=== PATIENT | female | born 1995 | race Two or more races ===

== ENCOUNTER 2024-03-12 08:12 | Inpatient (IN) | payer OTHER ==
[~2024-03-12] VITALS: Ht 167.6 cm; Wt 168.6 kg
[2024-03-12] VITALS (9 sets, daily range): BP systolic 117–161; BP diastolic 56–85
[2024-03-12] MEDS ORDERED: PRENTAB9 PO (09:00)
[2024-03-12] MEDS ORDERED: LEVO75TA4 PO (09:00)
[2024-03-12] MEDS ORDERED: ECOT81TA5 PO (09:00)
[2024-03-12] MEDS ORDERED: LABE300T28 PO (09:00)
[2024-03-12] MEDS: LACTATED RINGER'S 1000 ML IV STA (09:12)
[2024-03-12] MEDS ORDERED: OXYTOCIN INJ 10UNITS/ML 1ML VIAL IM PRN (09:15)
[2024-03-12] MEDS ORDERED: LIDOCAINE 1% MDV 20ML VIAL INFIL PRN (09:15)
[2024-03-12] MEDS ORDERED: CARBOPROST TROMETHAMINE 250 MCG/ML AMP IM PRN (09:15)
[2024-03-12] MEDS ORDERED: TRANEXAMIC ACID INJection 1,000 MG in NS 100 ML IV PRN (09:15)
[2024-03-12] MEDS ORDERED: OXYTOCIN DRIP 30 UNITS in IV 1 EA IV PRN (09:15)
[2024-03-12 09:51] LABS: HEMATOCRIT 33.1 % (36.0-47.0); HEMOGLOBIN 10.9 g/dl (12.0-15.5); MEAN CORPUSCULAR HEMOGLOBIN 29.6 pg (27.0-33.0); MEAN CORPUSCULAR HGB CONC 32.9 g/dl (32.0-36.5); MEAN CORPUSCULAR VOLUME 89.9 fl (80.0-96.0); PLATELET COUNT, AUTOMATED 210 10^3/uL (150-450); RED BLOOD COUNT 3.68 10^6/uL (4.00-5.40); WHITE BLOOD COUNT 8.7 10^3/uL (4.0-10.0)
[2024-03-12 10:19] LABS: ALT/SGPT 15 U/L (7.0-40); AST/SGOT 14 U/L (<34); BILIRUBIN,TOTAL 0.3 MG/DL (0.3-1.2); CREATININE FOR GFR 0.54 MG/DL (0.55-1.30); GLOMERULAR FILTRATION RATE > 60.0 (>60); LDH LACTATE DEHYDROGENASE 190 U/L (120-246)
[2024-03-12 10:20] LABS: URIC ACID 5.8 MG/DL (3.1-7.8)
[2024-03-12] MEDS: LEVOTHYROXINE 75MCG TABLET (0.075MG) PO SCH (10:38)
[2024-03-12 11:00] LABS: HEPATITIS C VIRUS ABY INDEX < 0.02 INDEX (<0.8)
[2024-03-12 11:37] LABS: CREATININE,RANDOM URINE 62.9 MG/DL
[2024-03-12 11:42] LABS: TOTAL PROTEIN,RANDOM URINE < 6.0 MG/DL (0.0-14.0)
[2024-03-12] MEDS: LR 1,000 ML IV SCH (13:34)
[2024-03-12] MEDS: OXYTOCIN DRIP 30 UNITS in IV 1 EA IV SCH (13:34)
[2024-03-12] MEDS: LABETALOL 100MG TAB PO SCH (13:42)
[2024-03-13] VITALS (24 sets, daily range): BP systolic 120–166; BP diastolic 56–94; TEMP 97.4; O2SAT 96–99
[2024-03-13] MEDS: MORPHINE 10 MG/ML 1ML VIAL IV ONE (04:45)
[2024-03-13] MEDS: PROMETHAZINE 25MG/ML 1ML VIAL IV ONE (04:45)
[2024-03-13] MEDS ORDERED: ceFAZolin SOD 3 GM IV Place Holder IV ONE (08:00)
[2024-03-13] MEDS: AZITHROMYCIN INJ 500 MG, VIAL MATE ADAPTER 1 EACH in NS 250 ML IV ONE (08:21)
[2024-03-13] MEDS: BICITRA 30ML SOLN UDC PO ONE (08:28)
[2024-03-13] MEDS: ceFAZolin SOD 1 GM in D5W MINI-BAG PLUS 50 ML IV ONE (08:29)
[2024-03-13] MEDS: ceFAZolin SOD 2 GM in IV 1 EA IV ONE (08:29)
[2024-03-13] MEDS ORDERED: fentaNYL 100 MCG/2 ML INJECTION As Ordered ONE (11:44)
[2024-03-13] MEDS ORDERED: OXYTOCIN 30UNITS IN 0.9% NaCl 500ML IV BAG As Ordered ONE (11:44)
[2024-03-13] MEDS ORDERED: TRANEXAMIC ACID 100 MG/ML 10ML VIAL As Ordered ONE (11:44)
[2024-03-13] MEDS ORDERED: ONDANSETRON 4MG 2ML VIAL As Ordered ONE (11:44)
[2024-03-13] MEDS ORDERED: MORPHINE PRES-FREE INJ 10 MG/10 ML VIAL As Ordered ONE (11:44)
[2024-03-13] MEDS ORDERED: PHENYLephrine 500MCG 5ML (100MCG/ML) SYRINGE As Ordered ONE (11:44)
[2024-03-13 12:03] LABS: CORD GAS ABE A -1.4; CORD GAS ABE V -2.5; CORD GAS HCO3 A 25.2 MMOL/L; CORD GAS HCO3 V 22.1 MMOL/L; CORD GAS O2 SAT A 17.5 %; CORD GAS O2 SAT V 52.7 %; CORD GAS PCO2 A 49.8 mmHg; CORD GAS PCO2 V 37.7 mmHg; CORD GAS PH A 7.322 UNITS; CORD GAS PH V 7.386 UNITS; CORD GAS PO2 A 10.8 mmHg; CORD GAS PO2 V 21.1 mmHg; CORD GAS SBC A 21.4 MMOL/L; CORD GAS SBC V 21.4 MMOL/L; CORD GAS TCO2 A 26.7 MMOL/L; CORD GAS TCO2 V 23.3 MMOL/L
[2024-03-13] MEDS ORDERED: KETOROLAC 60MG 2ML VIAL As Ordered ONE (12:21)
[2024-03-13] MEDS ORDERED: MOM 30ML SUSPENSION UDC PO PRN (12:45)
[2024-03-13] MEDS ORDERED: RHO(D) IMMUNE GLOBULIN/MALTOSE 500MCG(2500IU)/2.2ML VIAL (WINRHO) IM SCH (12:45)
[2024-03-13] MEDS ORDERED: oxyCODONE 5MG TAB PO PRN ×3 (12:45→13:15)
[2024-03-13] MEDS ORDERED: SIMETHICONE 80MG CHEW TAB PO PRN (12:45)
[2024-03-13] MEDS ORDERED: ACETAMINOPHEN 500 MG TAB PO PRN (12:45)
[2024-03-13] MEDS ORDERED: ONDANSETRON 4MG 2ML VIAL IV PRN (13:15)
[2024-03-13] MEDS ORDERED: fentaNYL 100 MCG/2 ML INJECTION IV PRN (13:15)
[2024-03-13] MEDS ORDERED: **NOTE PATIENT COMMENT** MISC XX SCH (13:15)
[2024-03-13] MEDS ORDERED: diphenhydrAMINE 50MG/ML VIAL IV PRN (13:15)
[2024-03-13] MEDS: LR 1,000 ML IV SCH (13:15)
[2024-03-13] MEDS ORDERED: NALOXONE INJ 0.4MG/1ML VIAL IV PRN ×2 (13:15)
[2024-03-13] MEDS: CEPHALEXIN 500 MG CAP PO SCH (15:01)
[2024-03-13] MEDS: metroNIDAZOLE (FLAGYL) 500MG TABLET PO SCH (15:01)
[2024-03-13] MEDS: SLF 3 ML SYR IV SCH (15:36)
[2024-03-13] MEDS ORDERED: UNRESOLVED CLARIFICATION ENTRY XX SCH (16:00)
[2024-03-13] MEDS: METOCLOPRAMIDE INJ 10MG/2ML VIAL IV PRN (17:08)
[2024-03-13] MEDS: KETOROLAC 30 MG/ML 1ML VIAL IV SCH (18:36)
[2024-03-13] MEDS: DOCUSATE SODIUM 100MG CAPSULE PO SCH (21:00)
[2024-03-13] MEDS: ENOXAPARIN 80MG/0.8ML SYRINGE (J1650 PER 10MG) SQ SCH (22:14)
[2024-03-14] MEDS: metroNIDAZOLE 500 MG in IV 1 EA IV ONE (00:55)
[2024-03-14 02:00] VITALS: BP 120/60; O2SAT 97
[2024-03-14 06:00] VITALS: BP 111/59; O2SAT 99
[2024-03-14 06:34] LABS: HEMATOCRIT 27.2 % (36.0-47.0); MEAN CORPUSCULAR HEMOGLOBIN 29.9 pg (27.0-33.0); MEAN CORPUSCULAR HGB CONC 33.1 g/dl (32.0-36.5); MEAN CORPUSCULAR VOLUME 90.4 fl (80.0-96.0); PLATELET COUNT, AUTOMATED 190 10^3/uL (150-450); RED BLOOD COUNT 3.01 10^6/uL (4.00-5.40); WHITE BLOOD COUNT 15.9 10^3/uL (4.0-10.0)
[2024-03-14] MEDS ORDERED: OXYC1TAB23 PO (07:41)
[2024-03-14] MEDS ORDERED: IBUP80TA PO (07:41)
[2024-03-14] MEDS ORDERED: COLA100C5 PO (07:41)
[2024-03-14] MEDS: PRENATAL VITAMINS CHEWABLE TABLET PO SCH (09:00)
[2024-03-14 10:00] VITALS: BP 126/66; O2SAT 95
[2024-03-14] MEDS: IBUPROFEN 800 MG TAB PO SCH (13:16)
[2024-03-14 13:57] VITALS: BP 109/58; O2SAT 97
[2024-03-14 18:00] VITALS: BP 120/65; O2SAT 97
[2024-03-14] MEDS ORDERED: ENOXAPARIN 80MG/0.8ML SYRINGE (J1650 PER 10MG) SQ SCH (21:00)
[2024-03-14 22:00] VITALS: BP 124/59; O2SAT 97
[2024-03-15 02:00] VITALS: BP 114/55; O2SAT 97
[2024-03-15 06:00] VITALS: BP 133/75; O2SAT 98
[2024-03-15] MEDS ORDERED: MEASLES,MUMPS,RUBELLA VACCINE INJ (MMR-II) SC.IMMUN ONE (09:00)
[2024-03-15 09:17] VITALS: BP 121/65
[2024-03-15 10:27] VITALS: BP 138/63; O2SAT 99
== END 2024-03-15 13:00 | disposition home or self-care (01) | DRG 772 ==
LOC: M LDI 08:12 → M OBS 03-13 14:32
PROVIDERS: ADMIT Specialist; ATTEND Advanced Practice Midwife
PROC: 3E033VJ Introduction of Other Hormone into Peripheral Vein, Percutaneous Approach (ICD-10-PCS; 2024-03-12)
PROC: 10D00Z1 Extraction of Products of Conception, Low, Open Approach (ICD-10-PCS; principal; 2024-03-13 09:30)
DX: O10.92 Unspecified pre-existing hypertension complicating childbirth (principal); Z68.44 Body mass index [BMI] 60.0-69.9, adult; O72.1 Other immediate postpartum hemorrhage; O34.211 Maternal care for low transverse scar from previous cesarean delivery; Z37.0 Single live birth; Z3A.38 38 weeks gestation of pregnancy; E66.01 Morbid (severe) obesity due to excess calories; O99.214 Obesity complicating childbirth; E03.9 Hypothyroidism, unspecified; O99.284 Endocrine, nutritional and metabolic diseases complicating childbirth; Z79.899 Other long term (current) drug therapy; Z79.82 Long term (current) use of aspirin; O61.0 Failed medical induction of labor

== ENCOUNTER 2024-11-26 14:57 | Emergency (ER) | payer OTHER ==
[~2024-11-26] VITALS: Ht 167.6 cm; Wt 159.8 kg
[~2024-11-26 14:57] MED LIST: COLA100C5 PO; ECOT81TA5 PO; IBUP80TA PO; LABE300T28 PO; LEVO75TA4 PO; OXYC1TAB23 PO; PRENTAB9 PO
[2024-11-26 22:03] LABS: BASO % 0.5 % (0.0-1.0); EOS # 0.1 10^3/uL (0.0-0.5); EOS % 0.6 % (0.0-3.0); HEMATOCRIT 41.4 % (36.0-47.0); HEMOGLOBIN 13.8 g/dl (12.0-15.5); LYMPH # 2.3 10^3/uL (1.5-5.0); LYMPH % 30.2 % (24.0-44.0); MEAN CORPUSCULAR HEMOGLOBIN 28.8 pg (27.0-33.0); MEAN CORPUSCULAR HGB CONC 33.3 g/dl (32.0-36.5); MEAN CORPUSCULAR VOLUME 86.4 fl (80.0-96.0); MONO # 0.5 10^3/uL (0.0-0.8); MONO % 5.8 % (2.0-8.0); NEUTROPHILS # 4.8 10^3/uL (1.5-8.5); NEUTROPHILS % 62.4 % (36.0-66.0); RED BLOOD COUNT 4.79 10^6/uL (4.00-5.40); WHITE BLOOD COUNT 7.7 10^3/uL (4.0-10.0)
[2024-11-26 22:24] LABS: ALBUMIN 3.7 G/DL (3.2-5.2); ALKALINE PHOSPHATASE 60 U/L (35-104); ALT/SGPT 18 U/L (7.0-40); AST/SGOT 19 U/L (<34); BILIRUBIN,DIRECT < 0.1 MG/DL (<0.4); BILIRUBIN,TOTAL 0.4 MG/DL (0.3-1.2); BLOOD UREA NITROGEN 14 MG/DL (9-23); CALCIUM LEVEL 9.5 MG/DL (8.5-10.1); CARBON DIOXIDE LEVEL 21 MMOL/L (20-31); CHLORIDE LEVEL 106 MMOL/L (98-107); CREATININE FOR GFR 0.74 MG/DL (0.55-1.30); GLOMERULAR FILTRATION RATE > 60.0 (>60); GLUCOSE, FASTING 96 MG/DL (60-100); POTASSIUM SERUM 4.3 MMOL/L (3.5-5.1); SODIUM LEVEL 139 MMOL/L (136-145); TOTAL PROTEIN 7.8 G/DL (5.7-8.2)
[2024-11-26 22:26] LABS: THYROID STIMULATING HORMONE 2.218 uIU/ML (0.55-4.78); THYROXINE (T4) 12.5 UG/DL (4.5-10.9)
[2024-11-26 22:43] LABS: HCG, SERUM QUALITATIVE NEGATIVE (NEGATIVE)
[2024-11-26] MEDS ORDERED: MONT10TA97 PO (23:05)
[2024-11-26] MEDS ORDERED: PRED20TA PO (23:05)
[2024-11-26] MEDS ORDERED: CETI10CH PO (23:38)
[2024-11-26 23:40] VITALS: BP 136/88; TEMP 98.7; O2SAT 98
== END 2024-11-26 23:42 | disposition home or self-care (01) ==
LOC: M ED 14:57
DX: R06.02 Shortness of breath (principal); J45.909 Unspecified asthma, uncomplicated; Z79.52 Long term (current) use of systemic steroids; Z79.899 Other long term (current) drug therapy

== ENCOUNTER → 2024-12-07 | Outpatient (REF) | payer OTHER ==
[~2024-12-07] MED LIST changes: +CETI10CH PO; +MONT10TA97 PO; +PRED20TA PO
[2024-12-07 12:21] LABS: GC DNA AMPLIFICATION NEGATIVE (NEGATIVE)
[2024-12-07 12:34] LABS: Trichomonas vaginalis (AMP) NOT DETECTED (NEGATIVE)
[2024-12-11 13:27] LABS: HPV APTIMA Not Detected (Not Detected)
== END ==
LOC: M SFHCWAGY 09:55
PROVIDERS: ATTEND Obstetrics & Gynecology
DX: Z12.4 Encounter for screening for malignant neoplasm of cervix (principal); R87.615 Unsatisfactory cytologic smear of cervix
CPT/HCPCS: 87086; 87624; 87661; 87810; 87850; G0123

== ENCOUNTER → 2025-03-06 | Outpatient (REF) | payer OTHER ==
[2025-03-08 14:13] LABS: HPV APTIMA Not Detected (Not Detected)
== END ==
LOC: M SFHCWAGY 13:15
PROVIDERS: ATTEND Obstetrics & Gynecology
DX: Z12.4 Encounter for screening for malignant neoplasm of cervix (principal)
CPT/HCPCS: 87624; G0123

== ENCOUNTER → 2025-05-31 | Outpatient (REF) | payer OTHER ==
[2025-05-31 16:32] LABS: BASO # 0.1 10^3/uL (0.0-0.2); BASO % 0.6 % (0.0-1.0); EOS # 0.1 10^3/uL (0.0-0.5); EOS % 0.6 % (0.0-3.0); LYMPH # 2.1 10^3/uL (1.5-5.0); LYMPH % 23.8 % (24.0-44.0); MONO # 0.5 10^3/uL (0.0-0.8); MONO % 5.7 % (2.0-8.0); NEUTROPHILS # 5.9 10^3/uL (1.5-8.5); NEUTROPHILS % 69.0 % (36.0-66.0); PLATELET COUNT, AUTOMATED 314 10^3/uL (150-450)
[2025-05-31 16:39] LABS: ALT/SGPT 16 U/L (7.0-40); AST/SGOT 13 U/L (<34); CALCIUM LEVEL 9.7 MG/DL (8.5-10.1); CARBON DIOXIDE LEVEL 24 MMOL/L (20-31); CHLORIDE LEVEL 103 MMOL/L (98-107); CHOLESTEROL LEVEL 223 MG/DL (<200); CHOLESTEROL RISK RATIO 3.31 (<5); CREATININE FOR GFR 0.72 MG/DL (0.55-1.30); GLOMERULAR FILTRATION RATE > 90.0 (>60); LDL CHOLESTEROL 115.2 MG/DL (<100); NON-HDL-C 155.8 MG/DL; POTASSIUM SERUM 4.5 MMOL/L (3.5-5.1); SODIUM LEVEL 137 MMOL/L (136-145); TRIGLYCERIDES LEVEL 203 MG/DL (<150)
[2025-05-31 16:41] LABS: TOTAL 25(OH) VITAMIN D 29.9 NG/ML (20.0-100.0)
== END ==
LOC: M LAB REF 16:12
PROVIDERS: ATTEND Family Medicine Addiction Medicine
DX: E03.9 Hypothyroidism, unspecified (principal)